=== PATIENT | male | born 1975 | race Caucasian/White ===

== ENCOUNTER 2018-05-10 19:19 | Emergency (ER) | payer OTHER ==
[~2018-05-10] VITALS: Ht 185.4 cm; Wt 99.8 kg
[~2018-05-10 19:19] MED LIST: CIPROFLOXACIN500 M1 PO; FLOMAX0.4 MG PO; OXYCONTIN10 M1 PO; PERCOCET 5-3251 EACH PO; ZANTAC 150MG T150 MG PO
[2018-05-10 20:05] VITALS: BP 138/76
== END 2018-05-10 20:06 | disposition home or self-care (01) ==
LOC: ER 19:19
DX: F10.129 Alcohol abuse with intoxication, unspecified (principal); Y90.9 Presence of alcohol in blood, level not specified